=== PATIENT | male | born 1990 | race Caucasian/White ===

== ENCOUNTER 2016-11-23 21:04 | Emergency (ER) | payer MEDICAID, OTHER ==
[2016-11-23 21:14] VITALS: BP 153/88; PULSE 106; RESP 18; O2SAT 99
[2016-11-23] MEDS ORDERED: Albuterol-Ipratrop 3 mg / 0.5 (3 ml) UD IH STA (21:27)
[2016-11-23] MEDS ORDERED: Sodium Chloride 0.9% 1,000 ML IV STA (21:27)
--- NOTE | 2016-11-23 21:31 | ED PDOC ---
HPI: CCC, URI, Sore Throat Time Seen by Provider: 11/23/16 21:15 Chief Complaint (Nursing): Flu-like Symptoms Chief Complaint (Provider): fever History Per: Patient, Family History/Exam Limitations: no limitations Onset/Duration Of Symptoms: Days (2) Current Symptoms Are (Timing): Still Present Associated Symptoms: Fever, Chills, Sore Throat, Cough, Sputum, Myalgias, Nasal Congestion Additional History Per: Patient, Family Additional Complaint(s): 26 y/o male presents with fever x 2 days. Associated bodyaches, nasal congestion , productive cough, diarrhea generalized weakness. Patient's states tmax 104.2F this am, at that time patient was complaining of blurry vision and was intensely shivering and then noted him to faint. Last dose Ibuprofen 16:00. Denies head injury, headache, neck pain, nausea/vomiting, chest pain, shortness of breath, palpitations, abdominal pain, urinary symptoms, recent travel. Patient's son sick with similar symptoms. Past Medical History Reviewed: Historical Data, Nursing Documentation, Vital Signs Vital Signs: Last Vital Signs Temp 100.4 F H 11/23/16 23:01 Pulse 106 H 11/23/16 21:11 Resp 18 11/23/16 21:11 BP 153/88 H 11/23/16 21:11 Pulse Ox 99 11/23/16 23:35 - Medical History PMH: No Chronic Diseases - Surgical History Surgical History: No Surg Hx - Family History Family History: States: Unknown Family Hx - Living Arrangements Living Arrangements: With Family - Social History Current smoker - smoking cessation education provided: No - Home Medications Home Medications: Ambulatory Orders Medication Instructions Recorded traMADol [Ultram] 50 mg PO Q6 PRN #15 tab 09/24/14 Clindamycin [Cleocin] 300 mg PO TID #30 cap 08/07/15 Albuterol HFA [Ventolin HFA 90 1 puff IH Q4 PRN #1 inh 11/23/16 mcg/actuation (8 g)] Fluticasone Nasal [Flonase] 1 actuation NS BID #1 bottle 11/23/16 Ibuprofen [Motrin Tab] 1 tab PO Q6 PRN #20 tab 11/23/16 Oseltamivir [Tamiflu] 75 mg PO BID #10 cap 11/23/16 - Allergies Allergies/Adverse Reactions: Allergies Allergy/AdvReac Type Severity Reaction Status Date / Time apple skin Allergy RASH Uncoded 11/23/16 21:10 Review of Systems ROS Statement: Except As Marked, All Systems Reviewed And Found Negative Constitutional: Positive for: Fever, Chills, Weakness ENT: Positive for: Nose Congestion Respiratory: Positive for: Cough, Sputum Gastrointestinal: Positive for: Diarrhea Physical Exam - Reviewed Nursing Documentation Reviewed: Yes Vital Signs Reviewed: Yes - Physical Exam Appears: Positive for: Well, Non-toxic, No Acute Distress Head Exam: Positive for: ATRAUMATIC, NORMAL INSPECTION, NORMOCEPHALIC Skin: Positive for: Normal Color ENT: Positive for: Nasal Congestion Cardiovascular/Chest: Positive for: Regular Rate, Rhythm Respiratory: Positive for: Normal Breath Sounds Gastrointestinal/Abdominal: Positive for: Normal Exam Back: Positive for: Normal Inspection Extremity: Positive for: Normal ROM Neurologic/Psych: Positive for: Alert, Oriented - Laboratory Results Result Diagrams: 11/23/16 22:45 11/23/16 22:45 - ECG ECG: Positive for: Viewed By Me (reviewed by ED attending) ECG Rhythm: Positive for: Sinus Rhythm O2 Sat by Pulse Oximetry: 99 Pulse Ox Interpretation: Normal - Radiology X-Ray: Viewed By Me X-Ray Interpretation: No Acute Disease - Progress ED Course And Treament: labs, chest xray, ekg, IV fluids, IV toradol, duoneb On re-eval, patient states he is feeling better. Patient educated on findings, discharged with rx ibuprofen, flonase, albuterol hfa, tamiflu. Advised fluids, rest. Follow up PMD 2-3 days. Return to ED for worsening/concerning symptoms. Disposition - Clinical Impression Clinical Impression: Viral syndrome, Syncope - Patient ED Disposition Is Patient to be Admitted: No Counseled Patient/Family Regarding: Studies Performed, Diagnosis, Need For Followup, Rx Given - Disposition Referrals: [facility] [Provider Group] Disposition: Routine/Home Disposition Time: 23:27 Condition: IMPROVED Additional Instructions: Follow up with primary doctor in 2-3 days. Take medications as directed. Drink plenty of fluids, rest. Return to ED for worsening/concerning symptoms. Prescriptions: Albuterol HFA [Ventolin HFA 90 mcg/actuation (8 g)] 1 puff IH Q4 PRN #1 inh PRN Reason: Wheezing Fluticasone Nasal [Flonase] 1 actuation NS BID #1 bottle Ibuprofen [Motrin Tab] 1 tab PO Q6 PRN #20 tab PRN Reason: Pain, Moderate (4-7) Oseltamivir [Tamiflu] 75 mg PO BID #10 cap Instructions: Syncope (ED), Viral Syndrome (ED)
[2016-11-23] MEDS ORDERED: Albuterol-Ipratrop 3 mg / 0.5 (3 ml) UD ONE (21:50)
[2016-11-23 22:48] LABS: BASO # 0.1 K/uL (0.0-0.2); BASO % 0.6 % (0.0-2.0); EOS # 0.2 K/uL (0.0-0.7); EOS % 1.9 % (0.0-4.0); HEMATOCRIT 42.5 % (35.0-51.0); LYMPH # 1.3 K/uL (1.0-4.3); LYMPH % 14.9 % (20.0-40.0); MEAN CELL VOLUME 83.9 fl (80.0-94.0); MEAN CORPUSCULAR HEMOGLOBIN 28.2 pg (27.0-31.0); MEAN CORPUSCULAR HGB CONC 33.6 g/dL (33.0-37.0); MEAN PLATELET VOLUME 8.3 fl (7.2-11.7); MONO # 0.9 K/uL (0.0-0.8); MONO % 10.3 % (0.0-10.0); NEUT # 6.5 K/uL (1.8-7.0); NEUT % 72.3 % (50.0-75.0); NRBC % 0.1 % (0.0-0.0); RED CELL DISTRIBUTION WIDTH 12.9 % (11.5-14.5)
[2016-11-23 22:59] LABS: ALB/GLOB RATIO 1.3 (1.0-2.1); ALKALINE PHOSPHATASE 75 U/L (38-126); ALT/SGPT 78 U/L (21-72); AST/SGOT 43 U/L (17-59); BILIRUBIN,TOTAL 0.4 mg/dl (0.2-1.3); BLOOD UREA NITROGEN 13 mg/dl (9-20); CALCIUM 9.4 mg/dL (8.4-10.2); CARBON DIOXIDE 26 mmol/L (22-30); CHLORIDE 102 mmol/L (98-107); GFR AFRICAN-AMERICAN > 60; GLUCOSE,RANDOM 100 mg/dL (75-110); POTASSIUM 4.2 MMOL/L (3.6-5.0); SODIUM 142 mmol/l (132-148); TOTAL PROTEIN 8.5 G/DL (6.3-8.2)
[2016-11-23 23:02] VITALS: TEMP 100.4
--- NOTE | 2016-11-24 08:03 | CARD ---
APPROVED REPORT EKG Measurement Heart [id number] NM [id number] <Conclusion> Normal sinus rhythm Normal ECG
--- NOTE | 2016-11-29 16:44 | RAD ---
HISTORY: fever, cough COMPARISON: No prior. TECHNIQUE: Chest PA and lateral FINDINGS: LUNGS: Poor inspiration with low lung volumes, mild crowded bronchovascular markings and mild bibasilar atelectasis. PLEURA: No significant pleural effusion identified. No pneumothorax apparent. CARDIOVASCULAR: Normal. OSSEOUS STRUCTURES: No significant abnormalities. VISUALIZED UPPER ABDOMEN: Normal. OTHER FINDINGS: None. IMPRESSION: Poor inspiration with low lung volumes, mild crowded bronchovascular markings and mild bibasilar atelectasis
== END 2016-11-23 23:31 | disposition home or self-care (01) ==
LOC: H.ER 21:04
DX: B34.9 Viral infection, unspecified (principal); R55 Syncope and collapse